=== PATIENT | female | born 1960 | race African-American/Black ===

== ENCOUNTER 2022-01-03 22:58 | Emergency (ER) | payer OTHER ==
[2022-01-03 23:06] VITALS: BP 147/85; PULSE 96; RESP 18; TEMP 99.7; BMI 42.7
[2022-01-03] MEDS ORDERED: ACETAMINOPHEN 500 MG TABLET (FP) PO ONE (23:56)
[2022-01-03] MEDS ORDERED: LIDOCAINE 5% TOPICAL PATCH TP ONE (23:56)
[2022-01-04] MEDS ORDERED: LIDOCAINE 5% TOPICAL PATCH ONE (00:31)
[2022-01-04] MEDS ORDERED: ALBUTEROL SO4 2.5/IPRATROPIUM 0.5 INH SOL 3 ML VIAL.NEB. NEB ONE ×2 (00:31→01:17)
[2022-01-04] MEDS ORDERED: ACETAMINOPHEN 325 MG TABLET (FP) ONE (00:31)
[2022-01-04] MEDS: ALBUTEROL SO4 2.5/IPRATROPIUM 0.5 INH SOL 3 ML VIAL.NEB. NEB SCH ×3 (00:45→01:30)
[2022-01-04] MEDS ORDERED: KETOROLAC TROMETHAMINE 30 MG/1 ML VIAL IM ONE (02:19)
[2022-01-04] MEDS ORDERED: KETOROLAC TROMETHAMINE 30 MG/1 ML VIAL ONE (02:25)
[2022-01-04] MEDS ORDERED: LIDOCAINE PATCH REMOVAL MC ONE (12:00)
== END 2022-01-04 02:37 | disposition home or self-care (01) ==
LOC: JER 22:58
PROC: 3E023GC Introduction of Other Therapeutic Substance into Muscle, Percutaneous Approach (ICD-10-PCS; principal; 2022-01-03)
PROC: 3E0F7GC Introduction of Other Therapeutic Substance into Respiratory Tract, Via Natural or Artificial Opening (ICD-10-PCS; 2022-01-03)
DX: S80.01XA Contusion of right knee, initial encounter (principal); M25.511 Pain in right shoulder; W19.XXXA Unspecified fall, initial encounter
CPT/HCPCS: 70450-TC; 72070-TC-FY; 72100-TC-FY; 72125-TC; 73030-TC-RT-FY; 73070-TC-RT-FY; 73130-TC-RT-FY; 73562-TC-LT-FY; 73562-TC-RT-FY; 99285-25